=== PATIENT | female | born 1985 | race Hispanic/Latino ===

== ENCOUNTER 2024-01-26 01:27 | Emergency (ER) | payer BC ==
[2024-01-26] MEDS ORDERED: Ondansetron ODT 4 MG TAB ONE (01:42)
[2024-01-26] MEDS ORDERED: Mag-Al 1200 mg/1200 mg/30 ML UDCUP ONE (01:42)
[2024-01-26] MEDS ORDERED: Lidocaine Viscous Sol 2% 15 ml UD Cup ONE (01:42)
== END 2024-01-26 02:43 | disposition home or self-care (01) ==
LOC: BURERS 01:27
DX: K29.71 Gastritis, unspecified, with bleeding (principal)
CPT/HCPCS: 99283; Q0162

== ENCOUNTER 2024-04-16 02:35 | Emergency (ER) | payer OTHER ==
[2024-04-16] MEDS ORDERED: Ondansetron ODT 4 MG TAB ONE (02:56)
[2024-04-16] MEDS ORDERED: Pantoprazole DR 40 MG TAB ONE (02:56)
[2024-04-16] MEDS ORDERED: Lidocaine Viscous Sol 2% 15 ml UD Cup ONE (02:56)
[2024-04-16] MEDS ORDERED: Mag-Al 1200 mg/1200 mg/30 ML UDCUP ONE (02:56)
== END 2024-04-16 03:07 | disposition home or self-care (01) ==
LOC: BURERS 02:35
DX: K29.00 Acute gastritis without bleeding (principal)
CPT/HCPCS: 99283; Q0162